=== PATIENT | male | born 1970 | race Caucasian/White ===

== ENCOUNTER 2017-05-20 18:47 | Inpatient (IN) | payer OTHER ==
[~2017-05-20] VITALS: Ht 121.9 cm; Wt 36.6 kg
--- NOTE | ~2017-05-20 | HC ---
[facility] [address] [facility] [place] [address] CONSULTATION Name: TONY GRANDE Room #: 245-P [facility] IN M.R.#: [id number] Admission: 05/20/17 Attend Phys: Obinna Pitt MD Discharge: 05/21/17 Date of : 66 Report #: [id number] THIS REPORT FOR: //name// CC: Obinna Pitt NO PCP Salvador York REFERRING PHYSICIAN: Dr. Pitt. PRIMARY CARE PHYSICIAN: None. HISTORY OF PRESENT ILLNESS: The patient is a 46-year-old white male who was brought to the Emergency Room for a wound check. He was felt to be dehydrated, septic. The patient was admitted. A pulmonary consultation was requested. The patient has a long medical history. Thirteen years ago, he fell off the roof sustaining T7 spinal fracture resulting in paraplegia. He has had multiple complications following his injury including pneumonia, wound infections, etc. Over the last few years, he has been cared for by his blind father at home. He has not seen his wound physicians for many years. 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 He appears to be severely malnourished with cachexia. It was felt the patient was dehydrated. IV access was poor. A central line was placed. The patient sustained left iatrogenic pneumothorax. A chest tube was placed. Chest x-ray and chest CT showed left lower lobe infiltrate, atelectasis along with moderate-sized left pneumothorax. Normally, the patient is awake, conversant. He is currently on BiPAP. He is somewhat somnolent. 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 ALLERGIES: PENICILLIN, reactions not specified. MEDICATIONS: From home are reviewed. He is essentially not on any home medications other than local wound treatments to his decubitus ulcers. FAMILY HISTORY: Unknown. [facility] [address] [place] [address] CONSULTATION Name: TONY GRANDE Room #: 245-P [facility]#: [id number] Admission: 05/20/17 Attend Phys: Obinna Pitt MD Discharge: 05/21/17 Date of : 66 Report #: [id number] SOCIAL HISTORY: Apparently, he smokes at home. No history of alcohol use. He is cared for by his blind father at home. There is a visiting nurse who sees him every 3-4 days. REVIEW OF SYSTEMS: As mentioned above, somewhat limited as the patient is on BiPAP. PHYSICAL EXAMINATION: GENERAL: He is semi-somnolent, tolerating BiPAP. He appears very emaciated with contractures involving his extremities in a position. VITAL SIGNS: Temperature is 98 degrees Fahrenheit, pulse is 130, respiratory rate is 33, blood pressure is 90/50 mmHg, saturation is 100%. HEENT: Normocephalic, atraumatic. NECK: Supple, without lymphadenopathy or thyromegaly. CHEST: Breath sounds are fair. Few scattered crackles in the left base. CARDIOVASCULAR: Heart sounds are distant. No obvious murmurs or gallop. Normal S1, S2. Pulses are 2+/4+ bilaterally. ABDOMEN: Soft, nontender, no organomegaly or masses felt. GENITOURINARY: Deferred. RECTAL: Deferred. EXTREMITIES: No cyanosis or clubbing. MUSCULOSKELETAL: Remarkable for marked muscle atrophy, cachexia. On admission to the ER and ICU, the patient was found to be very unkempt with dirt and debris throughout his skin. NEUROLOGIC: Somnolent at this time. LABORATORY DATA: Chest x-ray revealed volume loss and atelectasis seen in the left lower lobe along with pneumothorax. CT chest was also reviewed. Prealbumin level is 3.8. Sodium 125, potassium 3.6, chloride 94, CO2 is 25, BUN is 29, creatinine is 1.0. Liver enzymes are mildly abnormal. WBC ____, hemoglobin is 8.0. There are significant bandemia 18%, platelets are normal. Arterial blood gas revealed pH 7.06, pCO2 67, pO2 146. A followup arterial blood gas on BiPAP revealed pH 7.27, pCO2 32, pO2 147 and FiO2 of 60%. IMPRESSION: 1. Severe decubitus wounds involving his hips, knees in this 46-year-old white male with history of T7 thoracic spine injury resulting in paraplegia. He is severely cachectic, malnourished. 2. Severe sepsis. 3. Acute hypercapnic hypoxic respiratory failure due to profound debility, weakness, and severe sepsis. 4. Profound protein calorie malnutrition with albumin of 1.0. 5. Multiple decubitus wounds. 6. T7 thoracic spine injury following a fall 13 years ago resulting in paraplegia with chronic contractures involving both upper and lower extremities. [facility] [address] [place] [address] CONSULTATION Name: TONY GRANDE Room #: 245-P [facility] IN .R.#: [id number] Admission: 05/20/17 Attend Phys: Obinna Pitt MD Discharge: 05/21/17 Date of : 66 Report #: [id number] 7. Past history of osteomyelitis involving the left greater trochanter. 8. Multiple spinal surgeries following his injury. 9. History of depression. 10. Apparent history of anorexia. 11. History of radiation for spinal tumor at the age of 6. 12. Iatrogenic left pneumothorax. 13. Medical directive. He is a DNR. RECOMMENDATION: We will continue BiPAP for now. Agree with broad-spectrum antibiotics to cover for wounds and also should cover for possible pneumonia, though it maybe chronic left lower lobe atelectasis. Aggressive nutritional support if possible is recommended. DVT and GI prophylaxis will be addressed. Wound has been consulted regarding multiple stage IV wounds. Overall, outlook appears to be quite poor. Agree with DNR status. In terms of disposition, it is clear that the patient should be in a facility rather than home as he has worsened with malnutrition, decubitus ulcer while being cared for by his father who is also blind. Would also consider LTAC in the interim once stabilized here. He then would benefit from half-way placement. Thank you for this consultation. <ELECTRONICALLY SIGNED> By: Salvador York MD 05/22/17 1117 [id number] 22 Salvador York MD /nt
--- NOTE | ~2017-05-20 | HC ---
[facility] [place] [address] CONSULTATION Name: TONY GRANDE Room #: 245-P [facility] IN M.R.#: [id number] Admission: 05/20/17 Attend Phys: Obinna Pitt MD Discharge: 05/21/17 Date of : 66 Report #: [id number] THIS REPORT FOR: //name// CC: Obinna Pitt NO PCP Salvador York DATE OF SERVICE: 05/21/2017 INFECTIOUS DISEASE CONSULTATION ATTENDING PHYSICIAN: Obinna Pitt MD REASON FOR CONSULTATION: Sepsis. HISTORY OF PRESENT ILLNESS: A 46-year-old well white man is brought to the Emergency Room at [facility] with multiple decubitus ulceration throughout his entire body. The patient's family present now, ward service supervisor and . They are expressed the desire that the patient be maintained comfortable. No aggressive care undertaken. No intubation, no dialysis. The patient expressed to another physician, he is desire of being DNR. PAST MEDICAL HISTORY: Positive for history of paraplegia for many years since young age and multiple decubitus ulcerations throughout his entire body. The patient has significant flexure contracture of lower extremities. DRUG ALLERGIES: PENICILLIN. MEDICATIONS: The patient is currently on treatment with enoxaparin, sodium bicarbonate drip, p.r.n. glucose glucagon, insulin drip, pressors including epinephrine, vasopressin, norepinephrine per protocol, vancomycin, loading dose followed by 750 mg IV every 12 hours, meropenem 1 g IV every 8 hours, morphine sulfate p.r.n. PAST MEDICAL AND SURGICAL HISTORY: As previously stated positive for paraplegia since age 11, history of radiation for a spinal tumor age 6, multiple decubitus ulcerations on lower extremities, abdomen, back, and trunk, severe malnutrition, anemia of chronic disease, previous infection with MRSA, Pseudomonas aeruginosa, multiple spinal surgeries. SOCIAL HISTORY: See H and P. FAMILY HISTORY: See H and P. REVIEW OF SYSTEMS: The patient in great distress and unable to give significant information, but he is continuously complaining of pain. [facility] [address] [place] [address] CONSULTATION Name: TONY GRANDE Room #: [address] [place] [address]..#: [id number] Admission: 05/20/17 Attend Phys: Obinna Pitt MD Discharge: 05/21/17 Date of : 66 Report #: [id number] PHYSICAL EXAMINATION: GENERAL: Chronically ill-appearing white man, cachectic, extremely unkempt. VITAL SIGNS: Temperature on admission of 98, pulse 121, BP 83/44, respirations 16, O2 saturation 100% on FiO2 of 40% BiPAP. HEENMT: Head normocephalic, atraumatic. Pupils reactive. Mouth, carious teeth. Dry mucous membrane. NECK: Stiff. The patient is stiff all over. LUNGS: Crackles, particularly in the right lung field. CHEST: Revealed left posterior chest fields decubitus ulceration. There is a left-sided chest tube for his pneumothorax. HEART: S1, S2. No gallop. ABDOMEN: Difficult to examine because of flexor contracture in the lower extremities. BACK: Revealed multiple decubitus on the left ischial area. EXTREMITIES: Reveal severe flexure contracture of lower extremities with ulcerations about the knees and legs. Previous surgical intervention, infection left leg by atypical looking scarring. NEUROLOGIC: Paraplegia. LABORATORY DATA: On admission, sodium 125, potassium 3.6, BUN 29, creatinine 1, glucose 86, SGOT 75, calcium 6.8, SGPT 16, albumin 0.9, CRP 299, protime 14.9, APTT 58.8. WBC 42,800; hemoglobin 7.8 g/dL, MCV 75, MCH 20 indicated microcytic hypochromic anemia and possible iron deficiency, platelets 724,000. The white blood cell count differential revealed 60% segmented neutrophils, 28% bands. Prealbumin is only 3.8 mg per liter. Urinalysis unable to obtain, unable to place Mg catheter. The blood gases on admission revealed pH 7.065, pCO2 of 67, pO2 of 146, bicarbonate 18.1, lactate 1.04. The set of gases are nonrebreather mask and FiO2 unable to determine. Repeat ABGs on 05/21/2017 at 12:15 p.m. revealed pH 7.14, pCO2 of 44, pO2 of 70, bicarbonate 14.7, lactate 1.46. These set of gases is on FiO2 of 40%. MICROBIOLOGY DATA: One of 2 blood cultures obtained at 10:50 p.m. last night revealed gram-positive cocci. The second blood culture remained negative. The sputum has been ordered and of course no sample obtained yet. RADIOLOGY EVALUATION: On admission, a chest x-ray revealed left-sided chest tube. No evidence of pneumothorax by chest x-ray. A CT scan of the chest revealed left-sided pneumothorax, large caliber left chest tube and left basilar pulmonary infiltrates. ASSESSMENT: 1. Severe sepsis with gram-positive cocci bacteremia. 2. Possible pneumonia. 3. Multiple decubitus ulcerations. 4. Paraplegia. [facility] [address] [place] [address] CONSULTATION Name: TONY GRANDE Room #: 245-P [facility] IN M.R.#: [id number] Admission: 05/20/17 Attend Phys: Obinna Pitt MD Discharge: 05/21/17 Date of : 66 Report #: [id number] 5. Microcytic hypochromic anemia. 6. Metabolic acidosis. SUGGESTIONS: Discussed with the patient's family who request no air leaks and no intubation, no dialysis. We will request consult with palliative care and continue current regimen of fluid resuscitation pressors and I agree with combination of vancomycin and meropenem. Dr. Salvador York and Dr. Pitt, thank you for requesting my suggestions in the care of your patient. <ELECTRONICALLY SIGNED> By: Lio Guzman MD 05/22/17 0930 [id number] Lio Guzman MD /nt
[2017-05-20 18:49] VITALS: BP 83/44
[2017-05-20 20:00] LABS: HEMATOCRIT 24.9 % (42.0-52.0); MCH 21.7 pg (26.0-34.0); MCHC 32.2 g/dL (28.0-37.0); MCV 67.6 fL (80.0-100.0); PLATELET COUNT 644 thou/uL (150-400); RBC 3.69 mil/uL (4.50-6.00); WBC 25.7 thou/uL (4.0-11.0)
[2017-05-20 20:11] LABS: CALCIUM 7.7 mg/dL (8.5-10.1); POTASSIUM 3.6 mmol/L (3.5-5.1)
[2017-05-20 20:40] LABS: ABSOLUTE NEUTROPHILS 22.6 thou/uL (1.4-8.2); METAMYELOCYTES 1 %
[2017-05-20 20:41] LABS: ANISOCYTOSIS 1+; MICROCYTES 1+
[2017-05-20 23:19] VITALS: BP 110/71
[2017-05-20 23:48] VITALS: BP 87/61
[2017-05-20 23:55] VITALS: BP 75/48
[2017-05-20 23:58] VITALS: BP 81/53
[2017-05-21] VITALS (78 sets, daily range): BP systolic 42–166; BP diastolic 16–101
[2017-05-21 01:08] LABS: DIRECT BILIRUBIN 0.2 mg/dL (<0.1-0.3); TOTAL BILIRUBIN 0.3 mg/dL (<0.1-1.0); TOTAL PROTEIN 5.6 g/dL (6.4-8.2)
[2017-05-21 01:31] LABS: HEMATOCRIT 24.2 % (42.0-52.0); HEMOGLOBIN 7.3 gm/dL (14.0-18.0); MCH 21.3 pg (26.0-34.0); MCHC 30.2 g/dL (28.0-37.0); MCV 70.5 fL (80.0-100.0); RBC 3.43 mil/uL (4.50-6.00); RDW 20.2 % (10.5-14.5); WBC 30.2 thou/uL (4.0-11.0)
[2017-05-21 03:39] LABS: BE(vivo) -11.1 mmol/L (-2 to +3); HCO3 18.8 mmol/L (22.0-26.0); PO2 146.5 mmHg (80.0-100.0); sO2 97.8 % (92.0-98.0)
[2017-05-21 03:40] LABS: PCO2 67.2 mmHg (35.0-45.0); pH 7.065 (7.360-7.450)
[2017-05-21 09:01] LABS: BE(vivo) -11.3 mmol/L (-2 to +3); HCO3 14.5 mmol/L (22.0-26.0); PCO2 32.3 mmHg (35.0-45.0); PO2 147.7 mmHg (80.0-100.0); sO2 98.6 % (92.0-98.0)
[2017-05-21 09:03] LABS: pH 7.271 (7.360-7.450)
[2017-05-21 12:24] LABS: BE(vivo) -13.4 mmol/L (-2 to +3); HCO3 14.7 mmol/L (22.0-26.0); PCO2 44.2 mmHg (35.0-45.0); PO2 70.1 mmHg (80.0-100.0); sO2 88.6 % (92.0-98.0)
[2017-05-21 12:40] LABS: pH 7.141 (7.360-7.450)
[2017-05-21 14:12] LABS: HEMATOCRIT 28.1 % (42.0-52.0); HEMOGLOBIN 7.8 gm/dL (14.0-18.0); MCH 20.8 pg (26.0-34.0); MCHC 27.7 g/dL (28.0-37.0); MCV 75.1 fL (80.0-100.0); PLATELET COUNT 724 thou/uL (150-400); RBC 3.74 mil/uL (4.50-6.00); RDW 20.1 % (10.5-14.5)
[2017-05-21 14:15] LABS: WBC 42.8 thou/uL (4.0-11.0)
[2017-05-21 14:44] LABS: ABSOLUTE NEUTROPHILS 37.7 thou/uL (1.4-8.2); METAMYELOCYTES 6 %; MYELOCYTES 3 %; PLATELET ESTIMATE INCREASED
[2017-05-21 14:45] LABS: ANISOCYTOSIS 2+; HYPOCHROMASIA 1+
[2017-05-21 14:49] LABS: APTT 58.8 Seconds (24.5-32.8); FIBRINOGEN 314.7 mg/dL (210-360); INR 1.5; PROTIME 14.9 Seconds (9.3-11.4)
[2017-05-21 14:56] LABS: CALCIUM 6.8 mg/dL (8.5-10.1); CREATININE 0.9 mg/dL (0.7-1.3); POTASSIUM 3.8 mmol/L (3.5-5.1)
[2017-05-21 15:02] LABS: ALBUMIN 0.9 g/dL (3.4-5.0); TOTAL BILIRUBIN 0.3 mg/dL (<0.1-1.0); TOTAL PROTEIN 5.7 g/dL (6.4-8.2)
== END 2017-05-21 17:59 | DRG 871 ==
LOC: ER 18:47 → ICU 22:22 → EROBS 22:22 → ICU 23:31
PROVIDERS: Emergency Medicine; Hospitalist; Internal Medicine Pulmonary Disease; Nurse Practitioner Acute Care
PROC: 05HN33Z Insertion of Infusion Device into Left Internal Jugular Vein, Percutaneous Approach (ICD-10-PCS; principal; 2017-05-20)
PROC: 0W9B30Z Drainage of Left Pleural Cavity with Drainage Device, Percutaneous Approach (ICD-10-PCS; 2017-05-21)
PROC: 5A09357 Assistance with Respiratory Ventilation, Less than 24 Consecutive Hours, Continuous Positive Airway Pressure (ICD-10-PCS; 2017-05-21)
DX: A41.9 Sepsis, unspecified organism (principal); L89.94 Pressure ulcer of unspecified site, stage 4; E43 Unspecified severe protein-calorie malnutrition; R65.21 Severe sepsis with septic shock; J96.01 Acute respiratory failure with hypoxia; J96.02 Acute respiratory failure with hypercapnia; J93.83 Other pneumothorax; G82.20 Paraplegia, unspecified; E87.2 Acidosis; F32.9 Major depressive disorder, single episode, unspecified; F17.210 Nicotine dependence, cigarettes, uncomplicated; Z66 Do not resuscitate; D50.9 Iron deficiency anemia, unspecified; Z88.0 Allergy status to penicillin; Z68.24 Body mass index [BMI] 24.0-24.9, adult; Z51.5 Encounter for palliative care
CPT/HCPCS: 10078